=== PATIENT | female | born 1995 | race Two or more races ===

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

== ENCOUNTER 2021-03-16 15:02 | Emergency (ER) | payer MEDICAID, OTHER ==
[~2021-03-16] VITALS: Ht 160 cm; Wt 65.8 kg
[2021-03-16 15:02] VITALS: BP 135/87
[2021-03-16] MEDS ORDERED: MORPHINE SULFATE 4 MG/ML SYR/VIAL IV ONE (16:00)
[2021-03-16] MEDS ORDERED: ONDANSETRON HCL 4 MG/2 ML VIAL IV ONE (16:00)
[2021-03-16 16:30] LABS: Basophils # (auto) 0 10 ^3/uL (0-0.2); Basophils % (auto) 0.4 % (0.0-2.0); Eosinophils # (auto) 0 10 ^3/uL (0-0.8); Eosinophils % (auto) 0.5 % (0.0-7.0); Hematocrit 42.2 % (36.0-46.0); Hemoglobin 14.4 g/dL (12.2-16.2); Lymphocytes % (auto) 14.5 % (10.0-50.0); Mean Corpuscular Hemoglobin 31.5 pg (28.0-32.0); Mean Corpuscular Hgb Conc. 34.2 g/dL (32.0-36.0); Mean Corpuscular Volume 92.3 fL (80.0-100.0); Monocytes # (auto) 0.4 10 ^3/uL (0-1.3); Monocytes % (auto) 5.1 % (0.0-12.0); Neutrophils # (auto) 5.7 10 ^3/uL (1.6-8.6); Neutrophils % (auto) 79.5 % (37.0-80.0); Nucleated Red Blood Cells % 0.1 %; Red Blood Cells 4.57 10^6/uL (4.0-5.20); Red Cell Distribution Width 13.2 % (11.8-14.3); White Blood Cell 7.2 10^3/uL (4.4-10.8)
[2021-03-16 16:43] LABS: Albumin 3.9 g/dL (3.4-5.0); Calcium 8.9 mg/dL (8.5-10.1); Potassium 3.7 mmol/L (3.5-5.1)
[2021-03-16 16:46] LABS: BUN/Creatinine Ratio 8.9; Bilirubin, Total 0.7 mg/dL (0.2-1.0); Total Protein 7.1 g/dL (6.4-8.2)
[2021-03-16] MEDS ORDERED: IBUP800T27 PO ×2 (17:56→18:20)
[2021-03-16] MEDS ORDERED: TRAM50TA2 PO ×2 (17:56→18:20)
[2021-03-16] MEDS ORDERED: META800T37 PO ×2 (17:56→18:20)
[2021-03-16] MEDS ORDERED: [UNRECOGNIZED DRUG - CODE] XX ×2 (17:58→18:20)
[2021-03-16] MEDS ORDERED: IBUPROFEN 600 MG TAB PO ONE (18:30)
== END 2021-03-16 18:01 | disposition home or self-care (01) ==
LOC: ER 15:02 → EDBD 15:02 → ER 18:01
DX: S90.01XA Contusion of right ankle, initial encounter (principal); R51.9 Headache, unspecified; M54.2 Cervicalgia; M79.642 Pain in left hand; M25.532 Pain in left wrist; V49.9XXA Car occupant (driver) (passenger) injured in unspecified traffic accident, initial encounter; Y93.89 Activity, other specified; Y92.89 Other specified places as the place of occurrence of the external cause; Y99.8 Other external cause status
CPT/HCPCS: 36415; 70450; 71045; 72125; 72170; 73110; 73130; 73590; 73610; 73630; 80053; 83690; 84702; 85025